=== PATIENT | female | born 1975 | race Caucasian/White ===

== ENCOUNTER 2016-09-04 11:50 | Emergency (ER) | payer MEDICAID ==
--- NOTE | 2016-09-04 12:21 | Emergency Department Record ---
History of Present Illness - General Chief complaint: Abscess Stated complaint: ABCESS ON RIGHT UPPER ARM Time Seen by Provider: 09/04/16 12:14 Source: Patient Mode of Arrival: Ambulatory Limitations: No limitations - History of Present Illness Initial comments: The patient has had a hematoma to her R arm for about 3 months after some local trauma. It seemed to get infected about a week ago and now has been draining purulent material today. She denies any fever, chills, vomiting, or VAZQUEZ's. MD complaint: Abscess/boil Onset/Timin -: Month(s) Location: RUE Severity: Moderate Quality: Burning Consistency: Intermittent Improves with: None Worsens with: None Context: None Associated symptoms: Denies other symptoms Treatments Prior to Arrival: Attempted to drain pus at home, Bandages - Related Data Previous Rx's Medication Instructions Recorded Clindamycin HCl [Cleocin HCl] 300 mg PO QID #28 capsule 09/04/16 Hydrocodone/Acetaminophen [[place] 1 - 2 each PO .EVERY 4-6 HRS PRN 09/04/16 5-325 Tablet] #20 tablet Allergies Allergy/AdvReac Type Severity Reaction Status Date / Time No Known Allergies Allergy PT UNSURE Verified 09/04/16 11:58 OF REACTION Travel Screening - Travel/Exposure Within Last 30 Days Have you traveled within the last 30 days?: No - Travel/Exposure Within Last Year Have you traveled outside the [place] in the last year?: No - Additonal Travel Details Have you been exposed to anyone with a communicable illness?: No - Travel Symptoms Symptom Screening: None Review of Systems Constitutional: Denies: Chills, Fever Eyes: Denies: Eye discharge ENT: Denies: Congestion Respiratory: Denies: Cough, Dyspnea Past Medical History - SOCIAL HISTORY Smoking Status: Current every day smoker Alcohol Use: Rare Drug Use: None - RESPIRATORY Hx Respiratory Disorders: No - CARDIOVASCULAR Hx Cardio Disorders: No - NEURO Hx Neuro Disorders: No - GI Hx GI Disorders: No - Hx Genitourinary Disorders: No - ENDOCRINE Hx Endocrine Disorders: No - MUSCULOSKELETAL Hx Musculoskeletal Disorders: No - PSYCH Hx Psych Problems: No - HEMATOLOGY/ONCOLOGY Hx Hematology/Oncology Disorders: No Family Medical History Any Significant Family History?: Yes Hx Diabetes: Father Hx Heart Disease: Father, Mother Hx HTN: Father Physical Exam - General General Appearance: Alert, Oriented x3, Cooperative, No acute distress - Head Head exam: Atraumatic, Normocephalic, Normal inspection - Eye Eye exam: Normal appearance, PERRL - Neck Neck exam: Normal inspection, Full ROM. negative: Tenderness - Respiratory Respiratory exam: Normal lung sounds bilaterally. negative: Respiratory distress - Cardiovascular Cardiovascular Exam: Regular rate, Normal rhythm, Normal heart sounds - Extremities Extremities exam: Tenderness (over the abscess area.). negative: Normal inspection (There is a 3x3 cm abscess to the mid posterior R arm with mild surrounding cellulitis.) Course - Reevaluation(s) Reevaluation #1: Procedure note: The R arm was prepped with betadine and anesth. with 5 CC lido 1 %. The area was opened up with a # 11 blade and minimal purulent material was drained with a moderate amount of blood. There were no complications. 09/04/16 12:58 Reevaluation #2: The patient was doing very well at discharge and understands the plan for F/U early next week with her PCP. 09/04/16 13:36 Disposition Disposition: Discharge Clinical Impression: Arm abscess Disposition: Home, Self-Care Condition: (1) Good Instructions: Abscess Incision and Drainage (ED) Additional Instructions: Please take the Clindamycin and [place] as directed. Use warm compresses to the R arm abscess area every 1-2 hours while awake. Please see Dr. Choi on Thursday as planned. Return to the ER for any increased pain, redness, swelling or fever. Prescriptions: Clindamycin HCl [Cleocin HCl] 300 mg PO QID #28 capsule Hydrocodone/Acetaminophen [[place] 5-325 Tablet] 1 - 2 each PO .EVERY 4-6 HRS PRN #20 tablet PRN Reason: Pain Forms: Patient Portal Access Time of Disposition: 13:01
[2016-09-04] MEDS ORDERED: HYDROCODONE/APAP 5/325MG TABLET PO ONE (12:45)
[2016-09-04] MEDS ORDERED: CLINDAMYCIN 150 MG CAP PO ONE (12:45)
== END 2016-09-04 13:14 | disposition home or self-care (01) ==
LOC: ER 11:50
DX: L02.413 Cutaneous abscess of right upper limb (principal)
CPT/HCPCS: 10060; 99284